=== PATIENT | female | born 1930 | race Caucasian/White ===

== ENCOUNTER → 2016-05-13 | Outpatient (CLI) | payer OTHER, MEDICARE ==
[~2016-05-13] MED LIST: ADULT LOW DOSE81 MG PO; ATENOLOL 100MG100 M2 PO; ATENOLOL 100MG100 MG PO; ATENOLOL 50 MG50 M1 PO; AVAPRO300 MG PO; CARDURA2 MG PO; CENTRUM SILVER1 EAC1 PO; CIPRO500 MG PO; COZAAR 50 MG TA50 M1 PO; CRESTOR40 MG PO; DYAZIDE 37.5-21 EACH; FLAGYL500 MG PO; FOSAMAX 70 MG T70 M1 PO; GLUCOSAMINE S1000 M2 PO; MELOXICAM7.5 MG PO; MOBIC7.5 MG PO; NORVASC 5 MG TAB5 MG PO; TRAMADOL 50 MG50 MG PO; ZANAFLEX2 M1 PO; ZANAFLEX2 M2 PO
== END ==
LOC: MRI 09:18
DX: M19.012 Primary osteoarthritis, left shoulder (principal); M75.22 Bicipital tendinitis, left shoulder; M75.50 Bursitis of unspecified shoulder; M25.512 Pain in left shoulder

== ENCOUNTER 2016-06-03 18:19 | Inpatient (IN) | payer OTHER, MEDICARE ==
[~2016-06-03] VITALS: Ht 165.1 cm; Wt 79.8 kg
--- NOTE | ~2016-06-03 | HC ---
[facility] [place] [address] CONSULTATION Name: BJORN ROUSE Room #: 412-P ADM IN M.R.#: [id number] Admission: 06/03/16 Attend Phys: Fozia Liang MD Discharge: Date of : 31 Report #: [id number] THIS REPORT FOR: //name// CC: Landon Tanner DATE OF SERVICE: 06/04/2016 TYPE OF REPORT: General surgery consultation. REASON FOR CONSULTATION: Abdominal pain. HISTORY OF PRESENT ILLNESS: This is an 85-year-old female patient who presented to the [facility] with lower abdominal pain. She has been seen at an urgent care facility 2 days prior and was felt to have diverticulitis for which she was placed on ciprofloxacin and Flagyl. The patient has had difficulty with worsening abdominal pain as well as chills and diarrhea. She passed a bowel movement at around 5:00 last night and had worsened pain with nausea and diaphoresis. She then came to the [facility] for further evaluation and treatment. She underwent a CT of the abdomen and pelvis last night, which showed acute proximal sigmoid diverticulitis with a small diverticular abscess and microperforation as several small gas bubbles were seen in the right upper quadrant beneath the diaphragm. There was no significant abscess or drainable fluid collection and there was not a large collection of air. In addition to this, fluid-filled dilated loops of small bowel were seen in the central abdomen. I have been asked to see the patient for further evaluation and treatment. She reports no significant abdominal pain at this time unless she moves or pressure is applied. PAST MEDICAL HISTORY: Significant for hypertension and hypercholesterolemia. 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 HOME MEDICATIONS: Include meloxicam, atenolol, Crestor, Norvasc, aspirin and Cardura. ALLERGIES: No known drug allergies. FAMILY HISTORY: Reviewed and noncontributory to this hospitalization. SOCIAL HISTORY: The patient denies any use of tobacco, alcohol or illicit drugs. [facility] [address] [place] [address] CONSULTATION Name: BJORN ROUSE Room #: 412-P [facility] IN M.R.#: [id number] Admission: 06/03/16 Attend Phys: Fozia Liang MD Discharge: Date of : 31 Report #: [id number] REVIEW OF SYSTEMS: As per history of present illness and in addition: GENERAL: The patient denies unintentional weight loss. Denies current fever or chills. HEENT: Denies changes in taste, vision, hearing or smell. RESPIRATORY: Denies shortness of breath, COPD or asthma. CARDIOVASCULAR: Denies chest pain or palpitations. Has a history of hypertension. GASTROINTESTINAL: As per history of present illness. Denies bright red blood per rectum. Denies emesis. GENITOURINARY: Denies dysuria, urgency, increased urinary frequency or hematuria. MUSCULOSKELETAL: Denies myalgia, arthralgia or arthritis. NEUROLOGIC: Denies headaches, numbness or tingling. PSYCHIATRIC: Denies depression, anxiety or suicidal ideations. SKIN AND INTEGUMENTARY: Denies new skin lesions, rashes or moles. ENDOCRINE: Denies polydipsia, polyuria, heat or cold intolerance. HEMATOLOGIC: Denies easy bleeding, bruising or anemia or jaundice. All other review of systems is negative. PHYSICAL EXAMINATION: VITAL SIGNS: Temperature 98.3, blood pressure 120/43, pulse 73 and respirations 18. GENERAL: This is an 85-year-old female patient, in no acute distress. She is friendly and cooperative. HEENT: Atraumatic and normocephalic with moist mucosal membranes. Oropharynx is clear. She has no scleral icterus. NECK: Supple. No appreciable lymphadenopathy. Trachea is midline. CHEST: Clear bilaterally. No crackles or wheezes. CARDIOVASCULAR: Regular rate and rhythm. S1 and S2. ABDOMEN: Soft and nondistended with tenderness to palpation in the lower abdomen area. She has no rebound or guarding. No palpable masses. No appreciable hernias. GENITOURINARY: Normal external female genitalia. EXTREMITIES: No clubbing, cyanosis or edema. She has missing digits on her right hand. NEUROLOGICAL: Cranial nerves 2 through 12 grossly intact. PSYCHIATRIC: Normal mood and affect. SKIN AND INTEGUMENTARY: No acute inflammatory changes, rashes, lesions or jaundice is present. LABORATORY DATA: CBC from this morning shows a white blood cell count 8.8, hemoglobin 12.4, hematocrit 37.0 and platelets 256. Comprehensive metabolic profile shows sodium 133, potassium 3.9, chloride 98, CO2 24, BUN 20, creatinine 1.2 and glucose 105 with normal liver function tests. Her lactate last night was normal at 1.3. Urinalysis yesterday showed 1+ protein, trace blood and [facility] [address] [place] [address] CONSULTATION Name: BJORN ROUSE Room #: 412-P ADM IN Josefa#: [id number] Admission: 06/03/16 Attend Phys: Fozia Liang MD Discharge: Date of : 31 Report #: [id number] trace leukocytes. RADIOLOGIC STUDIES: CT of the abdomen and pelvis with contrast, findings are as noted above. IMPRESSION AND PLAN: This is an 85-year-old female patient with a history of hypertension, who has a sigmoid diverticulitis with a probable microperforation. She has no sepsis associated with this and no evidence for peritonitis. We discussed the pathophysiology and natural history of diverticular disease and diverticulitis. We then discussed the treatment alternatives and surgical options. As the patient has no peritonitis, we would continue the IV antibiotic therapy. When she began to pass flatus or bowel movement, her diet can be advanced and she can be switching to an oral antibiotic (would avoid ciprofloxacin and Flagyl as she had no improvement with the oral formulations of these medications). She is currently receiving Zosyn. Should she decline or develop peritonitis during this hospitalization, she would require a Johanna's procedure with removal of the sigmoid colon and descending colostomy. As she has complicated diverticulitis, ultimately, she would benefit from a sigmoid colectomy, which can be accomplished laparoscopically in a more elective setting after appropriate antibiotic therapy and recovery. We discussed the risks, benefits and expectations of the operation in detail. The patient would benefit from a colonoscopy prior to her undergoing the elective sigmoid colectomy. The patient understands the plan and is highly motivated to begin passing flatus and/or a bowel movement so that she may be dismissed from the hospital. She has no acute General Surgery issues at this time. I sincerely appreciate the opportunity to participate in the care of this patient and we will leave further recommendations and orders in the electronic medical record as appropriate. I will follow along with serial abdominal exams as well as laboratory studies and x-rays as necessary. <ELECTRONICALLY SIGNED> By: Emery Tanner MD, FACS 06/05/16 0956 [id number] Emery Tanner MD, FACS /nt
--- NOTE | ~2016-06-03 | D ---
[facility] [place] [address] DISCHARGE SUMMARY Name: BJORN ROUSE Room #: 412-P [facility] IN M.R.#: [id number] Admission: 06/03/16 Attend Phys: Fozia Liang MD Discharge: 06/05/16 Date of : 31 Report #: [id number] THIS REPORT FOR: //name// CC: Landon Tanner DATE OF SERVICE: 06/05/2016 DISCHARGE DIAGNOSES: 1. Sigmoid diverticulitis with microperforation. 2. Hypertension. 3. Hyponatremia secondary to above. 4. Dyslipidemia. CONSULTS: Surgery, Dr. Tanner PROCEDURES: None. HOSPITAL COURSE: The patient is an 85-year-old female presented to the ER secondary to abdominal pain. Please see details of admission dictated by Rosie Jacobson, on June 03. The patient was diagnosed with diverticulitis earlier in the week by primary care doctor and started on Cipro and Flagyl. However, she started having worsening abdominal pain, and was sent to the ER for evaluation for possible perforation. Workup in the ER included a CT scan that showed acute proximal sigmoid diverticulitis with possible tiny diverticular abscess and microperforation. She was admitted, and started on IV antibiotics, antiemetics and pain control and surgery was consulted. Her lactate was 1.3. Her white count was 6.4. Her sodium was also low at 127 and she was started on normal saline. Over the course of 24-48 hours, she improved remarkably and was anxious to go home. Surgery recommended, completing her antibiotic course and ____ sigmoidectomy. Her pain was markedly improved. She had no other complaints. Nurses report no other problems. DISCHARGE DISPOSITION: To home. DISCHARGE PHYSICAL EXAMINATION: VITAL SIGNS: Temperature of 36.5, pulse 76, blood pressure 142/64. GENERAL: She is awake, alert, answering questions appropriately, in no acute respiratory distress. CARDIOVASCULAR: Regular rate and rhythm, no murmurs. LUNGS: Clear to auscultation bilaterally. No crackles or wheeze. ABDOMEN: Soft, no distention or tenderness. EXTREMITIES: No edema. NEUROLOGIC: Nonfocal. [facility] [address] [place] [address] DISCHARGE SUMMARY Name: BJORN ROUSE Room #: 412-P [facility] IN M.R.#: [id number] Admission: 06/03/16 Attend Phys: Fozia Liang MD Discharge: 06/05/16 Date of : 31 Report #: [id number] DISCHARGE MEDICATIONS: Atenolol 100 mg in a a.m. and 50 mg in the p.m., Norvasc 5 mg daily, Crestor 40 daily, aspirin 81 daily, Cardura 2 mg daily, Cipro 500 b.i.d., Flagyl 500 b.i.d. ____ Mobic, Xanax, and Ultram. DIET: Regular diet. ACTIVITY: As tolerated. FOLLOWUP: With primary care in 1 week with repeat CBC and CMP ____ 2 weeks and seek immediate medical attention if symptoms worsen or recur or if she has any other significant medical concerns. <ELECTRONICALLY SIGNED> By: Fozia Liang MD 07/13/16 1053 2048 0851 Fozia Liang MD /nt
[~2016-06-03 18:19] MED LIST changes: -ATENOLOL 100MG100 MG PO; -CIPRO500 MG PO; -FLAGYL500 MG PO
[2016-06-03 18:22] VITALS: BP 171/79
[2016-06-03] MEDS ORDERED: CIPRO500 MG PO (18:36)
[2016-06-03] MEDS ORDERED: FLAGYL500 MG PO (18:37)
[2016-06-03] MEDS ORDERED: ATENOLOL 100MG100 MG PO (18:37)
[2016-06-03 19:10] LABS: ABSOLUTE NEUTROPHILS 5.3 thou/uL (1.4-8.2); BASOPHILS 0.5 % (0.0-2.0); EOSINOPHILS 2.1 % (0.0-3.0); HEMATOCRIT 41.2 % (37.0-47.0); HEMOGLOBIN 14.2 gm/dL (12.0-15.0); LYMPHOCYTES 10.9 % (24.0-44.0); MCH 29.6 pg (26.0-34.0); MCHC 34.4 % (28.0-37.0); MCV 85.8 fL (80.0-100.0); MONOCYTES 4.3 % (1.0-8.0); PLATELET COUNT 280 thou/uL (150-400); POLYS 82.2 % (36.0-66.0); RDW 13.4 % (10.5-14.5); WBC 6.4 thou/uL (4.0-11.0)
[2016-06-03 19:15] LABS: MANUAL DIFF NO
[2016-06-03 19:29] LABS: URINE BILIRUBIN NEGATIVE (Negative); URINE BLOOD TRACE (Negative); URINE COLOR YELLOW; URINE GLUCOSE-RANDOM* NEGATIVE (Negative); URINE KETONES NEGATIVE (Negative); URINE NITRITE NEGATIVE (Negative); URINE PROTEIN (DIPSTICK) 1+ (Negative); URINE UROBILINOGEN 0.2 E.U./dl (0.2-1.0)
[2016-06-03 19:31] LABS: CALCIUM 9.5 mg/dL (8.5-10.1); CREATININE 1.1 mg/dL (0.6-1.3)
[2016-06-03 19:37] LABS: BACTERIA 1-9 Few /HPF (None Seen); CASTS None Seen /LPF (None Seen); CRYSTALS None Seen /LPF (None Seen); SQUAMOUS 0-3 Few /LPF (0-3); URINE RBC 0-2 Rare /HPF (0-2); URINE WBC 0-5 Rare /HPF (0-5)
[2016-06-03 19:37] LABS: ALBUMIN 3.3 g/dL (3.4-5.0); TOTAL BILIRUBIN 0.6 mg/dL (<0.1-1.0); TOTAL PROTEIN 7.8 g/dL (6.4-8.2)
[2016-06-03 21:23] VITALS: BP 154/67
[2016-06-03 21:50] VITALS: BP 175/80
[2016-06-04] VITALS: BP 118/50
[2016-06-04 04:00] VITALS: BP 120/65
[2016-06-04 05:09] LABS: HEMOGLOBIN 12.4 gm/dL (12.0-15.0); MCH 29.1 pg (26.0-34.0); MCHC 33.4 % (28.0-37.0); RBC 4.26 mil/uL (4.20-5.00); RDW 13.7 % (10.5-14.5); WBC 8.8 thou/uL (4.0-11.0)
[2016-06-04 05:32] LABS: ALBUMIN 2.5 g/dL (3.4-5.0); CALCIUM 8.5 mg/dL (8.5-10.1); CREATININE 1.2 mg/dL (0.6-1.3); POTASSIUM 3.9 mmol/L (3.5-5.1); TOTAL BILIRUBIN 0.5 mg/dL (<0.1-1.0); TOTAL PROTEIN 6.2 g/dL (6.4-8.2)
[2016-06-04 08:00] VITALS: BP 120/43
[2016-06-04 12:00] VITALS: BP 111/56
[2016-06-04 16:25] VITALS: BP 140/60
[2016-06-04 19:45] VITALS: BP 160/66
[2016-06-05 04:38] VITALS: BP 147/63
[2016-06-05 05:11] LABS: HEMATOCRIT 34.2 % (37.0-47.0); HEMOGLOBIN 11.3 gm/dL (12.0-15.0); MCH 29.2 pg (26.0-34.0); MCHC 33.1 % (28.0-37.0); MCV 88.3 fL (80.0-100.0); RBC 3.87 mil/uL (4.20-5.00); WBC 9.8 thou/uL (4.0-11.0)
[2016-06-05 05:25] LABS: CALCIUM 8.1 mg/dL (8.5-10.1); CREATININE 0.9 mg/dL (0.6-1.3); POTASSIUM 4.1 mmol/L (3.5-5.1)
[2016-06-05 08:47] VITALS: BP 142/64
[2016-06-05 13:08] VITALS: BP 142/64
== END 2016-06-05 13:56 | disposition home or self-care (01) | DRG 391 ==
LOC: ER 18:19 → EROBS 20:34 → 4N 20:34
PROVIDERS: Family Medicine; Nurse Practitioner; Nurse Practitioner Family
DX: K57.20 Diverticulitis of large intestine with perforation and abscess without bleeding (principal); E43 Unspecified severe protein-calorie malnutrition; E87.1 Hypo-osmolality and hyponatremia; I10 Essential (primary) hypertension; E78.5 Hyperlipidemia, unspecified; E78.00 Pure hypercholesterolemia, unspecified; Z90.49 Acquired absence of other specified parts of digestive tract; Z98.890 Other specified postprocedural states; Z79.899 Other long term (current) drug therapy; Z79.82 Long term (current) use of aspirin; Z79.2 Long term (current) use of antibiotics; Z89.021 Acquired absence of right finger(s); Z82.49 Family history of ischemic heart disease and other diseases of the circulatory system; Z82.3 Family history of stroke
CPT/HCPCS: 10091

== ENCOUNTER → 2017-07-02 | Outpatient (CLI) | payer OTHER, MEDICARE ==
[~2017-07-02] VITALS: Ht 165.1 cm; Wt 76.7 kg
[~2017-07-02] MED LIST changes: +ATENOLOL 100MG100 MG PO; +CELEBREX 200 M200 MG PO; +CIPRO500 MG PO; +FLAGYL500 MG PO; +LOPRESSOR100 M1 PO; +LOPRESSOR50 PO; +PREVACID15 MG PO; +TYLENOL PM EX-1 EACH PO; +VOLTAREN GEL 1100 G2 TOP; +ZOVIRAX400 MG PO
--- NOTE | ~2017-07-02 | HPC ---
[facility] [place] [address] PAIN MANAGEMENT CONSULTATION Name: ROUSEBJORN Room #: REG [facility] Josefa#: [id number] Admission: 07/02/17 Attend Phys: Emery Vogt DO Discharge: Date of : 31 Report #: [id number] THIS REPORT FOR: //name// CC: Landon Vogt DATE OF SERVICE: 07/02/2017 The patient is a delightful 86-year-old female who was prior seen in Pain Clinic back in 09/2013, now nearly 4 years ago, presented to the Pain Clinic today with a new complaint. She had prior been seen for a left SI and hip pain. She ultimately progressed to have a left total hip arthroplasty in 2013 with overall improvement of back and hip symptoms. She notes pain is primarily in her shoulders, left greater than right. She suffered with chronic rotator cuff tears. Her orhtopedic surgeon had given her shoulder injections quite some time ago. Last year, Dr. Landon Horn had given her a shoulder injection with transient improvement of symptoms. She has done physical therapy with overall improvement, but notes recently pain has become problematic again with abduction of her arms. She notes pain is intermittent, periodic, burning, shooting and aching. She had done water aerobics with fairly aggressive range of motion and strengthening. However, with pain becoming more problematic, she is having further difficulty with the PT and she has not been in the water for some time now. She rates the pain as 6 on a VAS presently. She describes periodic, intermittent, aching, burning, shooting pain. REVIEW OF SYSTEMS: Complete review of systems was attached to chart and gone over with the patient. Her has since I last saw her. He had significant Parkinson's. 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 She has dyslipidemia for which she takes lovastatin, gastroesophageal reflux for which she takes Prevacid. She started back on Celebrex 200 mg 1 a day back in February. She had prior discontinued meloxicam due to some gastric ulcer bleeding in December. Those symptoms have quieted down. She does have hypertension for which she takes metoprolol and amlodipine. Doxazosin at bedtime occasionally for insomnia. PAST SURGICAL HISTORY: Includes the aforementioned total hip arthroplasty, colon resection in 2017. 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 The patient is retired. 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. Pain impact score averages 15/70. PHYSICAL EXAMINATION: Reveals a very pleasant, 5 feet 5 inches, 165-pound female, BMI is 28.2 kg/m2, blood pressure is modestly elevated 149/88, pulse is 66, respirations 16. Subjective pain score 6 on a VAS. Alert and oriented to person, place and time, judged to be a reasonable historian. Cervical range of [facility] [address] [place] [address] PAIN MANAGEMENT CONSULTATION Name: BJORN ROUSE Varghese Room #: REG [facility] Rivero#: [id number] Admission: 07/02/17 Attend Phys: Emery Vogt DO Discharge: Date of : 31 Report #: [id number] motion is full. Limited range of motion both shoulders. Decreased strength, left greater than right shoulder. Passive rotation of the shoulder exacerbates pain bilaterally. Deep tendon reflexes are preserved. Tinel's is negative. Heart is regular rhythmical. Lungs are clear. Rises from chair easily. Gait is actually fairly tandem. Lower extremity strength is preserved. DIAGNOSTIC STUDIES: Include MRI of the bilateral shoulders. Left shoulder notes advanced osteoarthritis with a full-thickness cartilage loss, multiple intra-articular bodies, joint effusion. Right shoulder also from 05/13/2016 notes approximately 50% thickness articular surface tear middle one-third of the supraspinatus tendon, with glenohumeral degenerative osteoarthrosis. ASSESSMENT: Symptomatic degenerative joint disease bilateral shoulders, history of myofascial pain, axial back pain, and degenerative joint disease left hip. RECOMMENDATIONS: Left shoulder joint injection under fluoroscopy today. Continue ice to the area. Follow up in next week for contralateral shoulder injection. Continue Celebrex and range of motion for shoulders. PROCEDURE NOTE: Left shoulder joint injection under fluoroscopy. PROCEDURE: After informed consent was obtained, the patient was taken to the fluoroscopy suite, placed in the supine position. Skin overlying the left shoulder was cleansed with ChloraPrep. Skin wheal with Xylocaine was raised. A 22-gauge stylet needle was placed to contact the proximal aspect of the humerus adjacent to the glenohumeral joint. Negative aspiration was accomplished. 1 mL of Omnipaque was injected, which showed spread within the joints followed with 40 mg triamcinolone plus 1 mL of 0.5% preservative-free bupivacaine. Needle was removed. The area was cleansed, bandage applied. The patient monitored for an appropriate period of time, discharged in good and stable condition. Fluoroscopy time was under 20 seconds. <ELECTRONICALLY SIGNED> By: Emery Vogt DO 07/05/17 0747 1238 1854 Emery Vogt DO /nt
[2017-07-02 11:04] VITALS: BP 149/88
== END ==
LOC: PAIN 07:01
DX: M19.012 Primary osteoarthritis, left shoulder (principal); M19.011 Primary osteoarthritis, right shoulder; M54.9 Dorsalgia, unspecified; M16.12 Unilateral primary osteoarthritis, left hip

== ENCOUNTER → 2017-10-28 | Outpatient (CLI) | payer OTHER, MEDICARE ==
[~2017-10-28] VITALS: Ht 165.1 cm; Wt 77.7 kg
[~2017-10-28] MED LIST changes: -VOLTAREN GEL 1100 G2 TOP; -ZOVIRAX400 MG PO
--- NOTE | ~2017-10-28 | HPC ---
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 She was prior seen on 07/02/2017. I did a left shoulder injection (intraarticular injection) at that time with very good improvement of her subjective pain. She notes pain, however, has begun to recur, decreased range of motion of the shoulder both active and passive. We reviewed the MRI of the left shoulder from 05/13/2016 which noted advanced osteoarthrosis left shoulder with full thickness cartilage loss. Multiple intraarticular bodies joint effusion. Some fraying of the supraspinatus tendon. Incidentally, the right shoulder from same date had noted mild to moderate arthrosis along with 50% thickness articular surface tear middle one third of the supraspinatus tendon. The patient returns to pain clinic today noting pains primarily in the left shoulder. She does have some pain in the mid back, right mid scapula thoracic paravertebral muscles. Rates her pain a 3-4 on a VAS with significant decreased range of motion primary in the left shoulder. ASSESSMENT: 1. Osteoarthritis, left shoulder. 2. Myofascial pain component. RECOMMENDATIONS: Left shoulder injection under fluoroscopy today, follow up in 7-10 days for reevaluation. Consideration for a trigger point injection, right thoracic paravertebral muscles if so indicated at that time. PROCEDURE: Left shoulder injection under fluoroscopy. PROCEDURE NOTE: After written informed consent was obtained, the patient was taken to the fluoroscopy suite and placed in the supine position. Skin overlying shoulder was cleansed with ChloraPrep. Skin wheal with Xylocaine was raised. A 22-gauge stylet needle was placed to contact the proximal aspect of the humerus at the glenohumeral joint. Negative aspiration was accomplished. 1 mL of Omnipaque was injected and showed spread within the joint followed with 40 mg triamcinolone plus 2 mL of 0.5% preservative-free bupivacaine. Needle was removed. The area was cleansed, Band-Aid was applied. The patient monitored [address] [address] PAIN MANAGEMENT CONSULTATION Name: BJORN ROUSE Varghese Room #: REG [facility] Josefa#: [id number] Admission: 10/28/17 Attend Phys: Emery Vogt DO Discharge: Date of : 31 Report #: [id number] for an appropriate period of time, discharged in good and stable condition. Fluoroscopy time was under 15 seconds. <ELECTRONICALLY SIGNED> By: Emery Vogt DO 10/29/17 0822 1221 1950 Emery Vogt DO /kerri
[2017-10-28 09:51] VITALS: BP 147/79
== END | disposition home or self-care (01) ==
LOC: PAIN 07-16 14:22
DX: M19.012 Primary osteoarthritis, left shoulder (principal); M79.1 Myalgia; G89.29 Other chronic pain; Z79.891 Long term (current) use of opiate analgesic; Z87.19 Personal history of other diseases of the digestive system; Z79.82 Long term (current) use of aspirin; Z79.899 Other long term (current) drug therapy; Z88.8 Allergy status to other drugs, medicaments and biological substances

== ENCOUNTER → 2017-11-12 | Outpatient (CLI) | payer OTHER, MEDICARE ==
[~2017-11-12] VITALS: Ht 165.1 cm; Wt 75.8 kg
[~2017-11-12] MED LIST changes: +VOLTAREN GEL 1100 G2 TOP
--- NOTE | ~2017-11-12 | HPC ---
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 She was seen on 10/28/2017, we did a left shoulder injection under fluoroscopy with about 70% improvement of baseline pain. Returns to pain clinic today. Please note, the left shoulder significantly improved, still some pain in the right shoulder with significant decreased range of motion of the right shoulder limited about 45 degrees abduction. Left shoulder significantly improved. The patient does water aerobics 3 times a week and I am convinced that this is probably dramatically improved her functional status. She had planned on getting another injection of the shoulder, but given the good relief, we have elected to somewhat withhold therapy. She tells me she is doing well, although she did have a syncopal event last Wednesday at [place]. Evaluation was unremarkable subsequent. She was discharged to home. Currently, the patient notes the pain is anywhere from 2-4 on a VAS. Pain is primarily in the bilateral shoulders, now actually right a little worse than left exacerbated with activity. PHYSICAL EXAMINATION: Shows a pleasant 86-year-old female, BMI 27.8 kilograms per meter squared. Vital signs stable as noted in the EMR, (blood pressure 148/80, pulse 60, respirations 14). Cervical range of motion is full. Decreased range of motion right shoulder. Left shoulder is improving range of motion, has some diffuse tenderness in the deltoid and suprascapular muscles, though no discrete trigger points are noted. Cervical range of motion is generally full. Hand grasp is generally symmetric. ASSESSMENT: Myofascial pain, osteoarthritis, left shoulder symptoms relatively quiescent at present. RECOMMENDATIONS: We will try some Voltaren gel topically for bilateral shoulders. Continue water aerobics. Follow up with the pain clinic as needed for interventional therapy. [address] [address] PAIN MANAGEMENT CONSULTATION Name: BJORN ROUSE Varghese Room #: REG [facility] Josefa#: [id number] Admission: 11/12/17 Attend Phys: Emery Vogt DO Discharge: Date of : 31 Report #: [id number] Discharged in good and stable condition. <ELECTRONICALLY SIGNED> By: Emery Vogt DO 11/15/17 0659 1212 193 Emery Vogt DO /nt
[2017-11-12 10:08] VITALS: BP 148/80
== END ==
LOC: PAIN 06:52
DX: M19.012 Primary osteoarthritis, left shoulder (principal); M79.1 Myalgia

== ENCOUNTER → 2018-03-11 | Outpatient (CLI) | payer OTHER, MEDICARE ==
[~2018-03-11] VITALS: Ht 165.1 cm; Wt 75.1 kg
[~2018-03-11] MED LIST changes: +ZOVIRAX400 MG PO
--- NOTE | ~2018-03-11 | HPC ---
[facility] [address] [place] [address] PAIN MANAGEMENT CONSULTATION Name: BJORN ROUSE Varghese Room #: REG ADENIKE TijerinaJorge LuisJordynJorge Luis#: [id number] Admission: 03/11/18 Attend Phys: Jojo Nugent MD Discharge: Date of : 31 Report #: [id number] THIS REPORT FOR: //name// CC: Landon Nugent DATE OF SERVICE: 03/11/2018 CHIEF COMPLAINT: Left hip and SI joint pain. HISTORY OF PRESENT ILLNESS: The patient is a delightful 87-year-old female who has been followed in the pain clinic by Dr. Emery Vogt. This is my first visit with the patient. She has pain and discomfort involving her right shoulder, which has been worse over the last 3-4 months. Also, has discomfort in the forearm. The patient fell this week. Did have some problem with her left shoulder as well. Has some limited range of motion. The patient does continue to try and improve her function by water aerobics three times a week. She has undergone injections in the past in the shoulder and found them to be beneficial. Pain continues to be involving the right shoulder today. Radiates down into the upper arm and into her right hand. She has noticed a red rash on the right outer portion of her right breast area. This is a new finding. States that she has had shingles on 3 previous occasions. She is not having any itching or pain similar to that which she has experienced in the past. Rates her pain as a 2-3. Notes that the pain increases with certain movements. Has found that medication as well as massage in her exercise activity has improved her painful condition. ALLERGIES: HYDROCODONE, LEVAQUIN. MEDICATIONS: Tylenol Extra Strength, Voltaren gel 1% to the shoulder t.i.d., Crestor 40 mg, Celebrex 200 mg, Prevacid 15 mg, Cardura 2 mg, aspirin 81 mg, Norvasc 5 mg, and atenolol 50 mg. PAST MEDICAL HISTORY: Fracture, right ankle in 1991. 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 PAST SURGICAL HISTORY: Fracture right ankle, surgical repair in 1991 with hardware removal in 1992. Fracture right wrist 2008, appendectomy at age 41, bilateral eyelift 1999 and total hip replacement in 2013. SOCIAL HISTORY: She is retired for 20 years. REVIEW OF SYSTEMS: Generally good health, fatigue, weakness, [address] [address] PAIN MANAGEMENT CONSULTATION Name: BJORN ROUSE Room #: REG Yosvany Rivero#: [id number] Admission: 03/11/18 Attend Phys: Jojo Nugent MD Discharge: Date of : 31 Report #: [id number] glaucoma/cataracts, hearing loss/ringing in the ears, shortness of breath, lightheadedness, dizziness, numbness and tingling sensation, and history of stroke. LABORATORY DATA: Left shoulder MRI dated 05/13/2016. IMPRESSION: 1. Advanced osteoarthritis of the left shoulder with full thickness cartilage loss. There are multiple intra-articular bodies, joint effusion. Moderate supraspinatus tendinosis and articular surface fraying, mild subacromial bursitis. 2. Right shoulder MRI, 05/13/2016. Approximately 50% thickness articular surface tear middle one-third supraspinatus tendon measuring 1.2 cm in maximal dimension. There is moderate insertional enthesopathy. 3. Glenohumeral degenerative osteoarthritis. 4. Lower extremity unilateral left. Impression: There are several oval fluid collections seen as well as evidence for surrounding mild fluid enhancement tracking down along the anterior medial aspect of the lower leg just below the knee. There are several more focal fluid collections. I would suspect the patient has sustained small hemorrhage here, resulting in localized appearance. There is no obvious underlying muscular injury. 5. Probability of inflammatory type process is not ruled out, but considering the general edema and enhancement. I would suspect that this is most likely due to benign process rather than cellulitis. PAIN CLINIC ASSESSMENT/PQRS: 1. History of osteoarthritis. The patient has hip and shoulder arthritic changes. 2. The patient is not being treated for rheumatoid arthritis. 3. Height 5 feet 5 inches. Weight 165 pounds, BMI 27.5. 4. Vital signs: Blood pressure 162/80, pulse 72, respiratory rate 16, room air saturation 97%. 5. Pain intensity 2-3/10. 6. Fall risk. The patient did fall this week. 7. Blood thinner. The patient is not on a blood thinning medication. 8. History of hypertension. The patient is being treated for hypertension. 9. Opioid therapy greater than 6 weeks. The patient is not receiving opioid medications on a regular basis. 10. Risk assessment tool, low risk for opioid use. 11. Functional assessment tool . 12. Recreational drug use. The patient denies use of recreational drugs. 13. Tobacco: The patient has never smoked. 14. Alcohol: The patient rarely uses alcoholic beverages. PHYSICAL EXAMINATION: GENERAL: The patient is a well-developed, well-nourished white female. Appears [facility] [address] [place] [address] PAIN MANAGEMENT CONSULTATION Name: BJORN ROUSE Room #: REG [facility]#: [id number] Admission: 03/11/18 Attend Phys: Jojo Nugent MD Discharge: Date of : 31 Report #: [id number] her stated age. She is alert and oriented x 3. Her affect is appropriate. Speech is fluent. HEENT: Normocephalic, atraumatic. Extraocular eye muscles intact. Sclerae nonicteric. Musculoskeletal: She has pain and discomfort in the left shoulder area. There is tenderness in the area of her left deltoid. Has some pain and discomfort in the right levator area as well as pain and discomfort in the right rhomboid. EXTREMITIES: Fracture, right ankle in 1991. Fracture wrist to right wrist 2008. GASTROENTEROLOGY: Chronic constipation, GERD. NEUROLOGIC: Ataxia due to old stroke, hearing loss, hypertension, neuropathy, glossopharyngeal nerve; osteoarthritis, stroke, and vertigo, benign positional more on the right side. SKIN: Shingles history x 3, skin cancer. RECOMMENDATIONS: We discussed treatment options with the patient. We will proceed with a trigger point injection to the 3 trigger point areas. Risks and benefits of the procedure were discussed. Possible complications of the procedure were reviewed. The patient elects to proceed. PROCEDURE NOTE: The patient was placed in the sitting position. Her right shoulder area was palpated. The trigger point was noted. At the area of the trigger point, a 25-gauge needle was then advanced into the area of discomfort. A total of 40 mg of triamcinolone was injected. The patient had a second trigger point in the right levator scapulae area. This area was palpated. The trigger point was noted. A 25-gauge needle was placed in this area. A total of 5 mL of 0.5% bupivacaine and 20 mg triamcinolone was injected into this area. The right rhomboid area was treated in a like fashion. This was the third trigger point. A 25-gauge needle was advanced into the right rhomboid trigger point. The patient states this did reproduce the discomfort. A total of 5 mL of 0.5% bupivacaine and 20 mg triamcinolone was injected. The patient tolerated the procedure well. There were no complications. She remained in the pain clinic for an appropriate amount of time. She will follow up in the future as needed. We would like to thank you for letting us participate in her care. We hope she continues to improve. By: 0830 [id number] Jojo Nugent MD /kerri
[2018-03-11 09:41] VITALS: BP 162/80
== END | disposition home or self-care (01) ==
LOC: PAIN 06:48
DX: M79.10 Myalgia, unspecified site (principal); K59.00 Constipation, unspecified; K21.9 Gastro-esophageal reflux disease without esophagitis; H91.90 Unspecified hearing loss, unspecified ear; I10 Essential (primary) hypertension; G62.9 Polyneuropathy, unspecified; M19.012 Primary osteoarthritis, left shoulder; M77.9 Enthesopathy, unspecified; M75.50 Bursitis of unspecified shoulder; Z88.8 Allergy status to other drugs, medicaments and biological substances; Z79.899 Other long term (current) drug therapy; Z79.82 Long term (current) use of aspirin; Z85.828 Personal history of other malignant neoplasm of skin; Z86.73 Personal history of transient ischemic attack (TIA), and cerebral infarction without residual deficits; Z98.890 Other specified postprocedural states; Z90.49 Acquired absence of other specified parts of digestive tract; Z96.649 Presence of unspecified artificial hip joint

== ENCOUNTER 2018-07-15 18:54 | Emergency (ER) | payer OTHER, MEDICARE ==
[~2018-07-15] VITALS: Ht 165.1 cm; Wt 72.6 kg
[2018-07-15 21:57] VITALS: BP 179/93
== END 2018-07-15 21:58 | disposition home or self-care (01) ==
LOC: ER 18:54
DX: G56.32 Lesion of radial nerve, left upper limb (principal); T38.0X5A Adverse effect of glucocorticoids and synthetic analogues, initial encounter; Y92.89 Other specified places as the place of occurrence of the external cause; Z90.49 Acquired absence of other specified parts of digestive tract; Z88.5 Allergy status to narcotic agent; Z88.1 Allergy status to other antibiotic agents; Z96.649 Presence of unspecified artificial hip joint

== ENCOUNTER → 2018-07-15 | Outpatient (CLI) | payer OTHER, MEDICARE ==
[~2018-07-15] VITALS: Ht 165.1 cm; Wt 75.8 kg
--- NOTE | ~2018-07-15 | HPC ---
[facility] [address] PAIN MANAGEMENT CONSULTATION Name: BJORN ROUSE Varghese Room #: REG ADENIKE Josefa#: [id number] Admission: 07/15/18 ������������������ Attend Phys: Jojo Nugent MD Discharge: ������������������ Date of : 31 Report #: [id number] THIS REPORT FOR: //name// CC: Landon Nugent DATE OF SERVICE: 07/15/2018 CHIEF COMPLAINT: Pain in the right arm and left shoulder. FOLLOWUP HISTORY: The patient is an 87-year-old female who has been followed in the Pain Clinic because of chronic pain involving her shoulders. She has undergone trigger point injections and injections in her upper back in the past. At this juncture, pain is worse on the left as well as the right side. She has undergone injections in the shoulder and has returned to the Pain Clinic with a desire to undergo injections. She has noted that these were quite efficacious in the past. She has had no complication from their use. She rates her pain as a 3/10. She notes a burning discomfort. She notes that her pain is exacerbated with activity, such as stretching. She feels that her medications are helpful as well as massage therapy. She has returned today with a desire to undergo trigger point injections to the affected areas, left and right. ALLERGIES: HYDROCODONE/LEVAQUIN. CURRENT MEDICATIONS: Tylenol Extra Strength, Crestor 40 mg, Celebrex 200 mg, Prevacid 15 mg, Tenormin 100 mg, Cardura 2 tablets at bedtime, aspirin 81 mg, Norvasc 5 mg, atenolol ____ 50 mg at bedtime. PAIN CLINIC ASSESSMENT/PQRS: 1. History of osteoarthritis: The patient has some hip and shoulder arthritic changes. The patient is not being treated for rheumatoid arthritis. 2. Height 5 feet 5 inches, weight 167 pounds, BMI is 27.8. 3. Vital signs: Blood pressure 159/82, pulse 66, respiratory rate 20, room air saturation 100%. 4. Pain intensity: 07/17. 5. Fall risk: The patient passed out at a mess a couple of days ago. 6. Blood thinner: The patient is not on a blood thinning medication. 7. Hypertension: The patient is being treated for hypertension. 8. Opioids greater than 6 weeks: The patient receives her medications from one source, Pain Clinic. 9. Risk assessment tool: Low for opioid use. 10. Functional assessment tool: . 11. Recreational drug use: The patient has never used drugs. 12. Tobacco: The patient has never smoked. 13. Alcohol: The patient occasionally drinks alcoholic beverages. [address] [address] PAIN MANAGEMENT CONSULTATION Name: BJORN ROUSE Varghese Room #: REG [facility] Josefa#: [id number] Admission: 07/15/18 ������������������ Attend Phys: Jojo Nugent MD Discharge: ������������������ Date of : 31 Report #: [id number] PHYSICAL EXAMINATION: GENERAL: The patient is a well-developed, well-nourished white female. She appears her stated age. She is alert and oriented x 3. Her affect is appropriate. Speech is fluent. HEENT: Normocephalic, atraumatic. Extraocular eye muscles are intact. Sclerae are nonicteric. Mucous membranes are moist. NECK: Without adenopathy or JVD. MUSCULOSKELETAL: Upper extremities: The patient has pain and discomfort in the left shoulder as well as in the right shoulder, in the deltoid area. She has pain that is in the left deltoid area as well as some in the posterior portion of the triceps on the left. She has pain in the right deltoid area. Muscle strength is judged to be 4+/5 for the upper extremities. The patient has some loss of fingers on her hand. Lower extremity muscle strength is judged to be 5-/5 for the lower extremities. ABDOMEN: Nontender. Bowel sounds present. 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 She has some hearing loss. Some problems with vertigo. SKIN: History of shingles x 3, skin cancer. RECOMMENDATIONS: We discussed treatment options with the patient. At this juncture, she continues to have pain and discomfort in the left and right deltoid area. She also has some pain and discomfort in the left trapezius and the left triceps area. She would like to proceed with trigger point injections. PROCEDURE NOTE: 1. The patient's right shoulder was sterilely prepped with a chlorhexidine solution. A trigger point was noted in the right deltoid area. A 25-gauge needle was injected into this area after it had been sterilely prepped with a chlorhexidine solution and allowed to dry. The patient states that this did reproduce her discomfort. A total of 4 mL of 0.5% bupivacaine and 40 mg triamcinolone was injected into this area. The patient tolerated the procedure well. 2. The right deltoid area was then identified. A trigger point was noted in the deltoid area. This area had been sterilely cleansed with a chlorhexidine solution and allowed to dry. A 25-gauge needle was then advanced into the area of the trigger point. The patient states that this did reproduce her discomfort. Aspiration was negative. A total of 4 mL of 0.5% bupivacaine with 40 mg triamcinolone was injected into this area. The patient tolerated the procedure well. 3. The last trigger point in the triceps area was identified. It was palpated. The patient states this did reproduce her discomfort. Aspiration was negative. A 25-gauge needle with 2 mL of 0.5% bupivacaine and 5 mL of 0.1% lidocaine was injected. The patient tolerated the procedure well. There were no complications. She remained in the Pain Clinic for an appropriate amount of time. She will [address] [address] PAIN MANAGEMENT CONSULTATION Name: BJORN ROUSE Varghese Room #: REG [facility]#: [id number] Admission: 07/15/18 ������������������ Attend Phys: Jojo Nugent MD Discharge: ������������������ Date of : 31 Report #: [id number] follow up in the future as needed. We would like to thank you for letting us participate in her care. We hope she continues to improve. ��������������������������������������������� ���������������������������������������� By: ��������������������������������������������� [id number] Jojo Nugent MD /kerri
[2018-07-15 11:04] VITALS: BP 159/82
--- NOTE | 2018-07-15 11:23 | NUR ---
Pain Clinic Assessment: 1. History of Osteoarthritis: HIPS SHOULDERS History of Rheumatoid Arthritis: Not Applicable 2. Height: 5 ft. 5 in. 165.1 cm. Weight: 167.0 lb. oz. 75.751 kg. Patient's BMI: 27.8 3. Vital Signs: BP: 159/82 Pulse: 66 Resp: 20 Temp: 02 Sat: 100 ECG Mon: 4. Pain Intensity: 3 5. Fall Risk: Dizziness: N Needs help standing or walking: N Fallen in the last 3 months: N Fall risk comments: PT PASSED OUT AT Wednesday 6. Patient on Blood Thinner: None 7. History of Hypertension: Y 8. Opioid Therapy greater than 6 weeks: N Opiate Contract Signed: 9. Risk Assessment Tool Provided: 1- LOW RISK 10. Functional Assessment Tool: 11. Recreational Drug Use: Never Drug Type: Tobacco Use: Never Smoker Tobacco Type: Amount or Packs/day: How Many Years: Alcohol Use: Yes Frequency: Special Occasions Quant:
== END | disposition home or self-care (01) ==
LOC: PAIN 03-25 07:23
DX: M79.18 Myalgia, other site (principal); G89.29 Other chronic pain; I10 Essential (primary) hypertension; M19.90 Unspecified osteoarthritis, unspecified site; Z88.6 Allergy status to analgesic agent; Z88.8 Allergy status to other drugs, medicaments and biological substances; Z79.82 Long term (current) use of aspirin; Z79.899 Other long term (current) drug therapy; Z87.19 Personal history of other diseases of the digestive system